=== PATIENT | female | born 1975 | race American Indian/Alaskan Native ===

== ENCOUNTER 2016-11-05 20:45 | Emergency (ER) | payer MEDICAID ==
[2016-11-05 21:00] VITALS: BP 148/99
[2016-11-05 21:52] LABS: Eosinophils % (Auto) 5.8 % (0.0-4.3); Hematocrit 35.7 % (30.3-42.9); Mean Corpuscular HGB Conc 34 % (30-34); Mean Corpuscular Hemoglobin 29 pg (28-32); Mean Corpuscular Volume 85 fl (79-97); Platelet Count 254 K/mm3 (140-440); Red Blood Count 4.19 M/mm3 (3.65-5.03); Red Cell Distribution Width 14.1 % (13.2-15.2); White Blood Count 7.3 K/mm3 (4.5-11.0)
[2016-11-05 22:58] LABS: Anion Gap 19 mmol/L; BUN/Creatinine Ratio 13.33; Blood Urea Nitrogen 12 mg/dL (7-17); Carbon Dioxide 21 mmol/L (22-30); Glucose 105 mg/dL (65-100); Potassium 4.2 mmol/L (3.6-5.0); Sodium 139 mmol/L (137-145)
== END 2016-11-05 22:22 | disposition left against medical advice (07) ==
LOC: ED 20:45
DX: R07.89 Other chest pain (principal); I10 Essential (primary) hypertension; G43.909 Migraine, unspecified, not intractable, without status migrainosus; Z53.21 Procedure and treatment not carried out due to patient leaving prior to being seen by health care provider
CPT/HCPCS: 36415; 80048; 84484; 85025; 93005; 93010

== ENCOUNTER 2018-09-05 05:23 | Inpatient (IN) | payer BC, MEDICAID ==
[2018-09-05] MEDS ORDERED: ASPIRIN PO ONE ×2 (05:29→06:48)
--- NOTE | 2018-09-05 05:54 | XRay Report ---
PROCEDURE: XR CHEST 1V AP TECHNIQUE: Chest radiograph single view. HISTORY: Chest Pain COMPARISONS: None . FINDINGS: No mediastinal shift. Cardiac silhouette is not enlarged. No pneumothorax, effusion, or focal pulmona ry opacity identified. No acute skeletal findings. IMPRESSION: No acute pulmonary finding identified. This document is electronically signed by Chuck Moffett MD., Sep 05 2018 05:52:40 AM ET
[2018-09-05 06:06] LABS: Hematocrit 36.6 % (30.3-42.9); Hemoglobin 12.3 gm/dl (10.1-14.3); Mean Corpuscular HGB Conc 34 % (30-34); Mean Corpuscular Volume 87 fl (79-97); Platelet Count 370 K/mm3 (140-440); Red Blood Count 4.21 M/mm3 (3.65-5.03)
--- NOTE | 2018-09-05 06:21 | Emergency Department Report ---
ED Chest Pain HPI - General Chief Complaint: Chest Pain Stated Complaint: CP/SOB Time Seen by Provider: 09/05/18 06:19 Source: patient Mode of arrival: Ambulatory Limitations: No Limitations - History of Present Illness Initial Comments: This is a 43 year old female with a history of hypertension. She has had a negative workup for chest pain as below indicated in 2017: Hospitalization Reason for admission: Chest Pain Condition: Good Pertinent studies: Stress test--Normal Echo--EF: 55-60% Hospital course: 38yo AAF with h/o HTN adm for CP Pls, see H&P for details She had Echo/Stress test done which were normal Currently, she denies CP PAULINE d/charlie 2/2 cough Disposition: DISCHARGED TO HOME OR SELFCARE - Discharge Diagnoses (1) Acute chest pain Status: Acute (2) Cough secondary to angiotensin converting enzyme inhibitor (PAULINE-I) Status: Acute (3) HTN (hypertension), benign Status: Acute Today she was awoken by chest pain at 2 in the morning. She admits noncompliance with her blood pressure medicine. She denies pleuritic pain. She states that she has nausea and tingling in her left arm. She denies cough or significant dyspnea. She is noncompliant with her blood pressure medicine. MD Complaint: chest pain -: Gradual Onset: awoke with symptoms Pain Location: left chest Pain Radiation: other (paresthesias left arm) Severity: moderate Quality: tightness Consistency: constant Improves With: nothing Worsens With: nothing re: nausea. denies: vomting, diaphoresis, dyspnea, sense of impending doom Other Symptoms: denies: cough, fever, syncope Treatments Prior to Arrival: none - Related Data On Oral Contraceptives: No Home Medications Medication Instructions Recorded Confirmed Last Taken cloNIDine [Catapres] 0.2 mg PO BID 04/12/16 04/12/16 04/11/16 0.2 mg Previous Rx's Medication Instructions Recorded Last Taken Type Azithromycin [Zithromax Z-TRENT] 1 dose PO DAILY 5 Days tab 04/12/16 Unknown Rx Benzonatate [Tessalon Perles] 100 mg PO Q8HR PRN #30 capsule 04/12/16 Unknown Rx Ibuprofen [Motrin] 800 mg PO Q8HR PRN #30 tablet 04/12/16 Unknown Rx traMADol [Ultram 50 MG tab] 50 mg PO Q6HR PRN #20 tablet 04/12/16 Unknown Rx Allergies Allergy/AdvReac Type Severity Reaction Status Date / Time No Known Allergies Allergy Verified 11/07/14 15:29 Heart Score - HEART Score History: Moderately suspicious EKG: Normal Age: < 45 Risk factors: 1-2 risk factors Troponin: < normal limit HEART Score: 2 - Critical Actions Critical Actions: 0-3 pts:0.9-1.7%risk of adverse cardiac event.Candidate for discharge ED Review of Systems ROS: Stated complaint: CP/SOB Other details as noted in HPI Constitutional: denies: chills, fever Eyes: denies: eye pain, eye discharge, vision change ENT: denies: ear pain, throat pain Respiratory: denies: cough, shortness of breath, wheezing Cardiovascular: chest pain. denies: palpitations Endocrine: no symptoms reported Gastrointestinal: nausea. denies: abdominal pain, vomiting, diarrhea Genitourinary: denies: urgency, dysuria, discharge Musculoskeletal: denies: back pain, joint swelling, arthralgia Skin: denies: rash, lesions Neurological: denies: headache, weakness, paresthesias Psychiatric: denies: anxiety, depression Hematological/Lymphatic: denies: easy bleeding, easy bruising ED Past Medical Hx - Past Medical History Previous Medical History?: Yes Hx Hypertension: Yes Hx Headaches / Migraines: Yes - Surgical History Past Surgical History?: Yes Additional Surgical History: x2 - Social History Smoking Status: Never Smoker Substance Use Type: None - Medications Home Medications: Home Medications Medication Instructions Recorded Confirmed Last Taken Type Azithromycin [Zithromax Z-TRENT] 1 dose PO DAILY 5 Days tab 04/12/16 Unknown Rx Benzonatate [Tessalon Perles] 100 mg PO Q8HR PRN #30 capsule 04/12/16 Unknown Rx Ibuprofen [Motrin] 800 mg PO Q8HR PRN #30 tablet 04/12/16 Unknown Rx cloNIDine [Catapres] 0.2 mg PO BID 04/12/16 04/12/16 04/11/16 History 0.2 mg traMADol [Ultram 50 MG tab] 50 mg PO Q6HR PRN #20 tablet 04/12/16 Unknown Rx ED Physical Exam - General Limitations: No Limitations General appearance: alert, in no apparent distress - Head Head exam: Present: atraumatic, normocephalic - Eye Eye exam: Present: normal appearance. Absent: scleral icterus - ENT ENT exam: Present: mucous membranes moist - Neck Neck exam: Present: normal inspection - Respiratory Respiratory exam: Present: normal lung sounds bilaterally. Absent: respiratory distress - Cardiovascular Cardiovascular Exam: Present: regular rate, normal rhythm. Absent: systolic murmur, diastolic murmur, rubs, gallop - GI/Abdominal GI/Abdominal exam: Present: soft, normal bowel sounds. Absent: distended, tenderness, guarding, rebound, rigid - Extremities Exam Extremities exam: Present: normal inspection - Back Exam Back exam: Present: normal inspection - Neurological Exam Neurological exam: Present: alert, oriented X3, CN II-XII intact. Absent: motor sensory deficit - Psychiatric Psychiatric exam: Present: normal affect, normal mood - Skin Skin exam: Present: warm, dry, intact, normal color. Absent: rash ED Course Vital Signs 09/05/18 09/05/18 05:26 06:39 Temperature 97.9 F Pulse Rate 67 Respiratory 18 20 Rate Blood Pressure 179/119 O2 Sat by Pulse 99 Oximetry - Reevaluation(s) Reevaluation #1: Somewhat anxious 43-year-old female with medical noncompliance. She will be given aspirin, Nitropaste analgesia and antiemetics. Her EKG and laboratory testing is normal. She is stable for admission by the hospitalist service for further care and evaluation of her chest pain and uncontrolled hypertension. 09/05/18 06:56 ANGEL score - Angel Score Age > 65: (0) No Aspirin use within the Past 7 Days: (0) No 3 or more CAD Risk Factors: (0) No 2 or more Angina events in past 24 hrs: (0) No Known CAD with more than 50% Stenosis: (0) No Elevated Cardiac Markers: (0) No ST Deviation Greater than 0.5mm: (0) No ANGEL Score: 0 ED Medical Decision Making - Lab Data Result diagrams: 09/05/18 05:47 09/05/18 05:51 Laboratory Results - last 24 hr 09/05/18 05:47 WBC 5.5 RBC 4.21 Hgb 12.3 Hct 36.6 MCV 87 MCH 29 MCHC 34 RDW 14.0 Plt Count 370 Seg Neutrophils % Welder First Class - EKG Data -: EKG Interpreted by Me EKG shows normal: sinus rhythm, axis, intervals, QRS complexes, ST-T waves Rate: normal - EKG Data Interpretation: no acute changes - Radiology Data Radiology results: report reviewed (no acute process) Critical care attestation.: If time is entered above; I have spent that time in minutes in the direct care of this critically ill patient, excluding procedure time. ED Disposition Clinical Impression: Uncontrolled hypertension Chest pain Qualifiers: Chest pain type: unspecified Qualified Code(s): R07.9 - Chest pain, unspecified Disposition: 09 OP ADMIT IP TO THIS HOSP Is pt being admited?: Yes Does the pt Need Aspirin: Yes Condition: Stable Instructions: Chest Pain (ED), Hypertension (ED) Time of Disposition: 06:58
[2018-09-05 06:28] LABS: BUN/Creatinine Ratio 13; Blood Urea Nitrogen 10 mg/dL (7-17); Calcium 8.5 mg/dL (8.4-10.2); Hemolysis Index 9
[2018-09-05] MEDS ORDERED: MORPHINE IV ONE (06:48)
[2018-09-05] MEDS ORDERED: NITRO-BID 2% TP ONE (06:48)
[2018-09-05] MEDS ORDERED: ZOFRAN IV ONE ×2 (06:48→09:04)
[2018-09-05 08:40] LABS: Basophils % (Manual) 0 % (0.0-1.8); Hypochromasia Few; Large Platelets Few; Ovalocytes Few; Platelet Estimate Consistent w Auto; Total Cells Counted 100
[2018-09-05] MEDS ORDERED: CATAPRES ONE ×2 (09:04→09:09)
[2018-09-05] MEDS ORDERED: ZOFRAN ONE (09:09)
[2018-09-05] MEDS: CATAPRES PO SCH ×2 (09:10→21:53)
--- NOTE | 2018-09-05 11:22 | History and Physical Report ---
History of Present Illness Date of examination: 09/05/18 Date of admission: 09/05/18 07:29 Chief complaint: Chest pain Shortness of breath History of present illness: Patient is 43 yo with hypertension , obesity. She presents with chest pain. Chest pain is left-sided, 8 out of 10, radiating to the left arm. There were no aggravating or alleviating factors. Chest pain not related to food. She got concerned therefore came to Emergency department for further evaluation. She was seen and evaluated in the ED. Initial troponin was normal. Will admit to rule out acute coronary syndrome since she has risk factors of hypertension and Obesity. Past History Past Medical History: hypertension, other (Obesity) Past Surgical History: Social history: , lives with family, full code, other (Alcohol occasionally). denies: smoking Family history: cancer, hypertension Medications and Allergies Allergies Allergy/AdvReac Type Severity Reaction Status Date / Time No Known Allergies Allergy Verified 11/07/14 15:29 Home Medications Medication Instructions Recorded Confirmed Last Taken Type Benzonatate [Tessalon Perles] 100 mg PO Q8HR PRN #30 capsule 04/12/16 09/05/18 Unknown Rx traMADol [Ultram 50 MG tab] 50 mg PO Q6HR PRN #20 tablet 04/12/16 09/05/18 Unknown Rx Butalb/Acetamin/Caff 50-325-40 1 tab PO Q4H PRN #20 tablet 09/07/18 Unknown Rx [Fioricet 50-325-40] Hydralazine HCl 50 mg PO BID #60 tablet 09/07/18 Unknown Rx dilTIAZem CD [Cardizem CD] 180 mg PO QDAY #30 capsule 09/07/18 Unknown Rx Active Meds: Active Medications Clonidine HCl (Catapres) 0.2 mg PO Q12HR VALDEZ Last Admin: 09/05/18 09:10 Dose: 0.2 mg Documented by: Review of Systems All systems: negative (No fever, no vomiting, no abd pain. Headache. All other systems reviewed and are negative) Exam - Physical Exam Narrative exam: Gen: Not in acute distress, lying in bed, obese, HEENT: Normocephalic, atraumatic Neck: supple, no JVD Heart: S1 and S2 reg, no murmurs, rubs or gallop Lungs: Clear, no crackles, no wheeze Abd: soft, non tender, non distended, normal BS Ext: No edema, no clubbing, no cyanosis, Neuro: Awake,alert, oriented x 3, moves all ext, non focal Psych:Normal mood - Constitutional Vitals: Temp Pulse Resp BP Pulse Ox 97.9 F 56 L 18 148/92 98 09/05/18 05:26 09/05/18 09:20 09/05/18 09:20 09/05/18 09:20 09/05/18 09:20 Results - Labs CBC & Chem 7: 09/06/18 05:29 09/06/18 05:29 Labs: Abnormal lab results 09/05/18 09/05/18 Range/Units 05:47 05:51 Seg Neuts % (Manual) 34.0 L (40.0-70.0) % Lymphocytes % (Manual) 43.0 H (13.4-35.0) % Monocytes % (Manual) 17.0 H (0.0-7.3) % Eosinophils % (Manual) 6.0 H (0.0-4.3) % Monocytes # (Manual) 0.9 H (0.0-0.8) K/mm3 Potassium 3.4 L (3.6-5.0) mmol/L Glucose 105 H (65-100) mg/dL Assessment and Plan Chest pain Admit Obtain Serial Troponins Aspirin 325mg po daily stress test in am Get d-dimer Shortness of breath Obtain d-dimer Hypertension Monitor BP Obesity. I counseled her on diet and exercise Full code status
[2018-09-05] MEDS ORDERED: PROVENTIL IH PRN (11:48)
[2018-09-05] MEDS ORDERED: ZOFRAN IV PRN (11:48)
[2018-09-05] MEDS ORDERED: SODIUM CHLORIDE FLUSH SYRINGE 10 ML IV PRN (11:48)
[2018-09-05] MEDS: HEPARIN SUB-Q SCH ×2 (13:48→21:53)
[2018-09-05] MEDS: TYLENOL PO PRN (15:55)
[2018-09-05] MEDS: FIORICET PO PRN (18:44)
[2018-09-05] MEDS: SODIUM CHLORIDE FLUSH SYRINGE 10 ML IV SCH (21:55)
[2018-09-06 05:51] LABS: Basophils % (Auto) 0.9 % (0.0-1.8); Eosinophils # (Auto) 0.3 K/mm3 (0.0-0.4); Eosinophils % (Auto) 5.2 % (0.0-4.3); Hematocrit 35.8 % (30.3-42.9); Hemoglobin 12.2 gm/dl (10.1-14.3); Lymphocytes # (Auto) 2.3 K/mm3 (1.2-5.4); Lymphocytes % (Auto) 45.5 % (13.4-35.0); Mean Corpuscular HGB Conc 34 % (30-34); Mean Corpuscular Volume 86 fl (79-97); Monocytes # (Auto) 0.6 K/mm3 (0.0-0.8); Monocytes % (Auto) 11.1 % (0.0-7.3); Platelet Count 351 K/mm3 (140-440); Red Blood Count 4.17 M/mm3 (3.65-5.03)
[2018-09-06 06:11] LABS: BUN/Creatinine Ratio 11; Blood Urea Nitrogen 9 mg/dL (7-17); Calcium 8.9 mg/dL (8.4-10.2); Hemolysis Index 37
[2018-09-06] MEDS: HEPARIN SUB-Q SCH ×3 (06:48→21:01)
[2018-09-06] MEDS ORDERED: LEXISCAN IV ONE (08:23)
[2018-09-06] MEDS: CATAPRES PO SCH (09:46)
[2018-09-06] MEDS: TYLENOL PO PRN (09:48)
--- NOTE | 2018-09-06 13:11 | Consultation ---
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 During the treadmill stress test patient went to left bundle branch block with some mild chest discomfort that resolved in recovery when heart rate below 70. Patient's chest pain is not radiation was with exertion denies any palpitations or syncope or lightheadedness but difficult control blood pressure as blood pressure fluctuates Past History Past Medical History: hypertension, other (Obesity) Past Surgical History: Social history: , lives with family, full code, other (Alcohol occasional ly). denies: smoking Family history: cancer, hypertension Medications and Allergies Allergies Allergy/AdvReac Type Severity Reaction Status Date / Time No Known Allergies Allergy Verified 11/07/14 15:29 Home Medications Medication Instructions Recorded Confirmed Last Taken Type Azithromycin [Zithromax Z-TRENT] 1 dose PO DAILY 5 Days tab 04/12/16 09/05/18 Unknown Rx Benzonatate [Tessalon Perles] 100 mg PO Q8HR PRN #30 capsule 04/12/16 09/05/18 Unknown Rx Ibuprofen [Motrin] 800 mg PO Q8HR PRN #30 tablet 04/12/16 09/05/18 Unknown Rx cloNIDine [Catapres] 0.2 mg PO BID 04/12/16 09/05/18 09/05/18 History 0.2MG traMADol [Ultram 50 MG tab] 50 mg PO Q6HR PRN #20 tablet 04/12/16 09/05/18 Unknown Rx Active Meds: Active Medications Acetaminophen (Tylenol) 650 mg PO Q4H PRN PRN Reason: Pain MILD(1-3)/Fever >100.5/PEÑA Last Admin: 09/06/18 09:48 Dose: 650 mg Documented by: Acetaminophen/Butalbital/Caffeine (Fioricet) 1 tab PO Q4H PRN PRN Reason: Headache Last Admin: 09/05/18 18:44 Dose: 1 tab Documented by: Albuterol (Proventil) 2.5 mg IH Q4HRT PRN PRN Reason: Shortness Of Breath Diltiazem HCl (Cardizem) 60 mg PO TID [facility] Heparin Sodium (Porcine) (Heparin) 5,000 unit SUB-Q Q8HR [facility] Last Admin: 09/06/18 06:48 Dose: 5,000 unit Documented by: Hydralazine HCl (Apresoline) 50 mg PO Q8HR [facility] Ondansetron HCl (Zofran) 4 mg IV Q8H PRN PRN Reason: Nausea And Vomiting Sodium Chloride (Sodium Chloride Flush Syringe 10 Ml) 10 ml IV BID [facility] Last Admin: 09/05/18 21:55 Dose: 10 ml Documented by: Sodium Chloride (Sodium Chloride Flush Syringe 10 Ml) 10 ml IV PRN PRN PRN Reason: LINE FLUSH Last Admin: 09/06/18 09:51 Dose: 10 ml Documented by: Review of Systems All systems: negative (as per HPI) Physical Examination Vital Signs Temp Pulse Resp BP Pulse Ox 97.9 F 67 18 179/119 99 09/05/18 05:26 09/05/18 05:26 09/05/18 05:26 09/05/18 05:26 09/05/18 05:26 General appearance: no acute distress, well-nourished HEENT: Positive: PERRL, Mucus Membranes Moist Neck: Positive: neck supple, trachea midline Cardiac: Positive: Reg Rate and Rhythm, S1/S2. Negative: Audible Murmur Lungs: Positive: clear to auscultation, Normal Breath Sounds Neuro: Positive: Grossly Intact Abdomen: Positive: Soft, Active Bowel Sounds. Negative: Tender, Distended Female genitourinary: deferred Skin: Positive: Clear Incision: Cardiac Cath Site Musculoskeletal: No Pain, Normal Range of Motion Extremities: Present: normal. Absent: edema Results 09/06/18 05:29 09/06/18 05:29 CBC 09/06/18 Range/Units 05:29 WBC 5.0 (4.5-11.0) K/mm3 RBC 4.17 (3.65-5.03) M/mm3 Hgb 12.2 (10.1-14.3) gm/dl Hct 35.8 (30.3-42.9) % Plt Count 351 (140-440) K/mm3 Lymph # 2.3 (1.2-5.4) K/mm3 [place] # 0.6 (0.0-0.8) K/mm3 Eos # 0.3 (0.0-0.4) K/mm3 Baso # 0.0 (0.0-0.1) K/mm3 Comprehensive Metabolic Panel 09/06/18 Range/Units 05:29 Sodium 140 (137-145) mmol/L Potassium 3.9 (3.6-5.0) mmol/L Chloride 103.3 (98-107) mmol/L Carbon Dioxide 26 (22-30) mmol/L BUN 9 (7-17) mg/dL Creatinine 0.8 (0.7-1.2) mg/dL Glucose 102 H (65-100) mg/dL Calcium 8.9 (8.4-10.2) mg/dL - Imaging and Cardiology Stress echo: other (normal myocardial perfusion and normal lv function, positive treadmill pt went into lbbb) Echo: pending EKG interpretations - Telemetry EKG Rhythm: Sinus Bradycardia (as bradycardia and nonspecific ST-T wave) Assessment and Plan In view of patient's elevated blood pressure. Clonidine and put patient on hydralazine with calcium channel trevor express heart rate has patient went to left bundle-branch block with activity normal myocardial perfusionsignificant ischemia echo is pending patient will ambulate on the medications and monitor change in EKG pattern - Patient Problems (1) Morbid obesity with BMI of 40.0-44.9, adult Current Visit: Yes Status: Chronic (2) Hypertension Current Visit: Yes Status: Chronic Qualifiers: Hypertension type: essential hypertension Qualified Code(s): I10 - Essential (primary) hypertension (3) Acute diastolic (congestive) heart failure Current Visit: Yes Status: Acute (4) Chest pain Current Visit: Yes Status: Acute Qualifiers: Chest pain type: unspecified Qualified Code(s): R07.9 - Chest pain, unspecified
[2018-09-06] MEDS: SODIUM CHLORIDE FLUSH SYRINGE 10 ML IV SCH ×2 (13:34→21:01)
--- NOTE | 2018-09-06 13:54 | Treadmill Report ---
TREADMILL PORTION OF NUCLEAR STRESS TEST The patient exercised on Vini protocol for 6 minutes. Resting heart rate is 51, which is normal sinus rhythm, nonspecific ST-Ts. Max heart rate was 154, which is greater than 85% max predicted heart rate. Resting blood pressure 142/89. Peak blood pressure 198/116. The patient within 3 minutes of treadmill went into a left bundle branch block, some mild chest discomfort, but was more pleuritic and the patient reached maximum predicted heart rate and in recovery, the patient converted back into a narrow complex QRS back to her baseline when heart rate cut down into the 60s. SUMMARY: 1. Positive treadmill EKG. The patient went into a left bundle branch block with activity, exaggerated BP response to exercise. 2. Poor to fair exercise capacity. IMAGING: Pending. JOB# [id number] JB/NABEEL
[2018-09-06] MEDS: APRESOLINE PO SCH ×2 (15:31→22:32)
[2018-09-06] MEDS: CARDIZEM PO SCH ×2 (15:32→22:32)
--- NOTE | 2018-09-06 16:52 | Progress Note ---
Assessment and Plan Assessment and plan: Chest pain Aspirin po daily stress test was abnormal in that she had LBBB during stress test. Discussed with cardiology D-dimer neg Shortness of breath Resolved Hypertensive urgency BP meds adjusted by cardiology Full code status History Interval history: patient admitted for chest pain Had LBBB during stress test, as stated by cardiology Hospitalist Physical - Physical exam Narrative exam: Gen: Not in acute distress, lying in bed, obese, HEENT: Normocephalic, atraumatic Neck: supple, no JVD Heart: S1 and S2 reg, no murmurs, rubs or gallop Lungs: Clear, no crackles, no wheeze Abd: soft, non tender, non distended, normal BS Ext: No edema, no clubbing, no cyanosis, Neuro: Awake,alert, oriented x 3, moves all ext, non focal Psych:Normal mood - Constitutional Vitals: Temp Pulse Resp BP Pulse Ox 98.0 F 51 L 18 144/91 100 09/06/18 06:04 09/06/18 06:04 09/06/18 06:04 09/06/18 15:32 09/06/18 06:04 General appearance: Present: no acute distress, well-nourished Results - Labs CBC & Chem 7: 09/06/18 05:29 09/06/18 05:29 Labs: Laboratory Last Values WBC 5.0 K/mm3 (4.5-11.0) 09/06/18 05:29 RBC 4.17 M/mm3 (3.65-5.03) 09/06/18 05:29 Hgb 12.2 gm/dl (10.1-14.3) 09/06/18 05:29 Hct 35.8 % (30.3-42.9) 09/06/18 05:29 MCV 86 fl (79-97) 09/06/18 05:29 MCH 29 pg (28-32) 09/06/18 05:29 MCHC 34 % (30-34) 09/06/18 05:29 RDW 14.0 % (13.2-15.2) 09/06/18 05:29 Plt Count 351 K/mm3 (140-440) 09/06/18 05:29 Lymph % (Auto) 45.5 % (13.4-35.0) H 09/06/18 05:29 Hernando % (Auto) 11.1 % (0.0-7.3) H 09/06/18 05:29 Eos % (Auto) 5.2 % (0.0-4.3) H 09/06/18 05:29 Baso % (Auto) 0.9 % (0.0-1.8) 09/06/18 05:29 Lymph # 2.3 K/mm3 (1.2-5.4) 09/06/18 05:29 Hernando # 0.6 K/mm3 (0.0-0.8) 09/06/18 05:29 Eos # 0.3 K/mm3 (0.0-0.4) 09/06/18 05:29 Baso # 0.0 K/mm3 (0.0-0.1) 09/06/18 05:29 Add Manual Diff Complete 09/05/18 05:47 Total Counted 100 09/05/18 05:47 Seg Neutrophils % 37.3 % (40.0-70.0) L 09/06/18 05:29 Seg Neuts % (Manual) 34.0 % (40.0-70.0) L 09/05/18 05:47 0 % 09/05/18 05:47 43.0 % (13.4-35.0) H 09/05/18 05:47 Reactive Lymphs % (Man) 0 % 09/05/18 05:47 17.0 % (0.0-7.3) H 09/05/18 05:47 6.0 % (0.0-4.3) H 09/05/18 05:47 0 % (0.0-1.8) 09/05/18 05:47 0 % 09/05/18 05:47 0 % 09/05/18 05:47 0 % 09/05/18 05:47 0 % 09/05/18 05:47 Nucleated RBC % Not Reportable 09/05/18 05:47 Seg Neutrophils # 1.9 K/mm3 (1.8-7.7) 09/06/18 05:29 Seg Neutrophils # Man 1.9 K/mm3 (1.8-7.7) 09/05/18 05:47 Band Neutrophils # 0.0 K/mm3 09/05/18 05:47 2.4 K/mm3 (1.2-5.4) 09/05/18 05:47 Abs React Lymphs (Man) 0.0 K/mm3 09/05/18 05:47 0.9 K/mm3 (0.0-0.8) H 09/05/18 05:47 0.3 K/mm3 (0.0-0.4) 09/05/18 05:47 0.0 K/mm3 (0.0-0.1) 09/05/18 05:47 0.0 K/mm3 09/05/18 05:47 0.0 K/mm3 09/05/18 05:47 0.0 K/mm3 09/05/18 05:47 Blast Cells # 0.0 K/mm3 09/05/18 05:47 WBC Morphology Not Reportable 09/05/18 05:47 Hypersegmented Neuts Not Reportable 09/05/18 05:47 Hyposegmented Neuts Not Reportable 09/05/18 05:47 Hypogranular Neuts Not Reportable 09/05/18 05:47 Not Reportable 09/05/18 05:47 Not Reportable 09/05/18 05:47 Not Reportable 09/05/18 05:47 Not Reportable 09/05/18 05:47 Not Reportable 09/05/18 05:47 Not Reportable 09/05/18 05:47 Consistent w auto 09/05/18 05:47 Not Reportable 09/05/18 05:47 Plt Clumps, EDTA Not Reportable 09/05/18 05:47 Few 09/05/18 05:47 Not Reportable 09/05/18 05:47 Not Reportable 09/05/18 05:47 Plt Morphology Comment Not Reportable 09/05/18 05:47 RBC Morphology Not Reportable 09/05/18 05:47 Dimorphic RBCs Not Reportable 09/05/18 05:47 Not Reportable 09/05/18 05:47 Few 09/05/18 05:47 Not Reportable 09/05/18 05:47 Not Reportable 09/05/18 05:47 1+ 09/05/18 05:47 Not Reportable 09/05/18 05:47 Not Reportable 09/05/18 05:47 Not Reportable 09/05/18 05:47 Not Reportable 09/05/18 05:47 Not Reportable 09/05/18 05:47 Not Reportable 09/05/18 05:47 Few 09/05/18 05:47 Not Reportable 09/05/18 05:47 Not Reportable 09/05/18 05:47 Not Reportable 09/05/18 05:47 Not Reportable 09/05/18 05:47 Not Reportable 09/05/18 05:47 Not Reportable 09/05/18 05:47 Not Reportable 09/05/18 05:47 Acanthocytes (Spur) Not Reportable 09/05/18 05:47 Rouleaux Not Reportable 09/05/18 05:47 Not Reportable 09/05/18 05:47 Not Reportable 09/05/18 05:47 Not Reportable 09/05/18 05:47 Not Reportable 09/05/18 05:47 Hem Pathologist Commnt No 09/05/18 05:47 168.71 ng/mlDDU (0-234) 09/05/18 11:38 Sodium 140 mmol/L (137-145) 09/06/18 05:29 Potassium 3.9 mmol/L (3.6-5.0) 09/06/18 05:29 Chloride 103.3 mmol/L (98-107) 09/06/18 05:29 Carbon Dioxide 26 mmol/L (22-30) 09/06/18 05:29 15 mmol/L 09/06/18 05:29 BUN 9 mg/dL (7-17) 09/06/18 05:29 0.8 mg/dL (0.7-1.2) 09/06/18 05:29 Estimated GFR > 60 ml/min 09/06/18 05:29 11 % 09/06/18 05:29 Glucose 102 mg/dL (65-100) H 09/06/18 05:29 Calcium 8.9 mg/dL (8.4-10.2) 09/06/18 05:29 < 0.010 ng/mL (0.00-0.029) 09/05/18 11:38 Active Medications - Current Medications Current Medications: Generic Name Dose Route Start Last Admin Trade Name Freq PRN Reason Stop Dose Admin Acetaminophen 650 mg 09/05/18 11:48 09/06/18 09:48 Tylenol PO 650 mg Q4H PRN Administration Pain MILD(1-3)/Fever >100.5/PEÑA Acetaminophen/Butalbital/Caffeine 1 tab 09/05/18 18:36 09/05/18 18:44 Fioricet PO 1 tab Q4H PRN Administration Headache Albuterol 2.5 mg 09/05/18 11:48 Proventil IH Q4HRT PRN Shortness Of Breath Diltiazem HCl 60 mg 09/06/18 14:00 09/06/18 15:32 Cardizem PO 60 mg TID VALDEZ Administration Heparin Sodium (Porcine) 5,000 unit 09/05/18 14:00 09/06/18 15:36 Heparin SUB-Q 5,000 unit Q8HR VALDEZ Administration Hydralazine HCl 50 mg 09/06/18 14:00 09/06/18 15:31 Apresoline PO 50 mg Q8HR VALDEZ Administration Ondansetron HCl 4 mg 09/05/18 11:48 Zofran IV Q8H PRN Nausea And Vomiting Sodium Chloride 10 ml 09/05/18 22:00 09/06/18 13:34 Sodium Chloride Flush Syringe 10 Ml IV Not Given BID VALDEZ Sodium Chloride 10 ml 09/05/18 11:48 09/06/18 09:51 Sodium Chloride Flush Syringe 10 Ml IV 10 ml PRN PRN Administration LINE FLUSH Nutrition/Malnutrition Assess - Dietary Evaluation Nutrition/Malnutrition Findings: Nutrition Notes Start: 09/05/18 17:12 Freq: Status: Active Protocol: Document 09/05/18 17:12 [facility] (Rec: 09/05/18 17:19 [facility] [id number]) Nutrition Notes Need for Assessment generated from: MD Order,[employer],[facility] Initial or Follow up Assessment Current Diagnosis Hypertension Other Pertinent Diagnosis Chest pain Current Diet Cardiac Labs/Tests K 3.4 Pertinent Medications Reviewed Height 5 ft 4 in Weight 94.4 kg Usual Body Weight 96.36 kg [place] Body Weight (kg) 54.54 BMI 35.7 Intake Prior to Admission Fair Weight change and time frame Pt reports unintentional 2% wt loss over the past three wks Weight Status Obese Subjective/Other Information RD consulted for poor oral intake; pt also screened for malnutrition risk (wt loss, poor appetite). Pt reports that she has only been eating small bites of food over the past two wks and has been more dehydrated than anything. Per records, pr noncompliant with BP medications (BP upon admission: 179/119). Pt says she takes her BP medications as prescribed though. Burn Absent Trauma Absent #1 Nutrition Diagnosis Inadequate oral intake Etiology decreased appetite As Evidenced by Signs and Symptoms pt eating very little currently Is patient on ventilator? No Is Patient Ambulatory and/or Out of Bed No REE-([place]-confined to bed) 1897.896 Kcal/Kg value to use for calculation 15 Approximate Energy Requirements Using 1416 kcal/Kg Calculation Used for Recommendations Kcal/kg Additional Notes Pro needs 0.8-1g/kg adjBW: 60- 74g/day Fluid needs 1ml/kcal Nutrition Intervention Change Diet Order: Continue current diet order Goal #1 PO intakes to meet at least 75 % energy and pro needs Anticipated Discharge Needs: Low sodium diet Follow-Up By: 09/09/18 Additional Comments F/U: intakes
--- NOTE | 2018-09-06 19:42 | Treadmill Report ---
READING PHYSICIAN: Stefan Young M.D. IMAGING PROTOCOL: The patient received 10 mCi of Technetium 99m Tetrofosmin for resting image and 28 mCi of Technetium 99m Tetrofosmin for stress imaging. The imaging for the whole procedure was completed 30-90 minutes following the initial injection of Technetium 99m Tetrofosmin. The SPECT imaging in the 180 degree arc was performed in the right anterior oblique projection. Computerized reconstruction of the images was performed for analysis. IMAGING RESULTS: Normal cavity size from stress to rest. Normal distribution of radionuclide in anterior, inferior, septal, and apical regions. Gated SPECT, EF 62% with no wall motion abnormality. The patient had a positive treadmill EKG. SUMMARY: 1. Positive treadmill EKG. The patient went to left bundle branch block with activity that resolved when heart rate went less than 70 and during recovery. 2. Mild exaggerated BP response to exercise. 3. Normal rest and stress myocardial perfusion scan. No significant stress induced ischemia. No wall motion abnormality. Gated SPECT, EF 62%. JOB# [id number] JB/NABEEL
[2018-09-06] MEDS: FIORICET PO PRN (20:57)
[2018-09-07] MEDS: APRESOLINE PO SCH (05:28)
[2018-09-07] MEDS: HEPARIN SUB-Q SCH (05:29)
[2018-09-07] MEDS: CARDIZEM PO SCH (08:20)
[2018-09-07] MEDS: SODIUM CHLORIDE FLUSH SYRINGE 10 ML IV SCH (09:59)
[2018-09-07 11:35] VITALS: BP 142/81
--- NOTE | 2018-09-07 11:42 | Progress Note ---
Assessment and Plan Patient's blood pressure and heart rate control with Cardizem and hydralazine may discharge on Cardizem CD 180 mg once a day and hydralazine 50 mg twice a day patient encouraged to lose weight dietary discretion patient ambulate without any chest pain or palpitations and no arrhythmia or change in QRS complex on Cardizem. Discussed with patient detail about cardiac findings and follow-up in office in 2 weeks - Patient Problems (1) Morbid obesity with BMI of 40.0-44.9, adult Current Visit: Yes Status: Chronic (2) Hypertension Current Visit: Yes Status: Chronic Qualifiers: Hypertension type: essential hypertension Qualified Code(s): I10 - Essential (primary) hypertension (3) Acute diastolic (congestive) heart failure Current Visit: Yes Status: Acute (4) Chest pain Current Visit: Yes Status: Acute Qualifiers: Chest pain type: unspecified Qualified Code(s): R07.9 - Chest pain, unspecified Subjective Date of service: 09/07/18 Principal diagnosis: no sob or chest pain Interval history: no chest pain or sob Objective Vital Signs Temp Pulse Pulse Resp Resp BP Pulse Ox 09/07/18 10:56 98.4 F 64 18 142/81 99 09/07/18 08:20 127/82 09/07/18 08:18 127/82 09/07/18 05:24 98.4 F 57 L 20 128/75 99 09/06/18 22:19 98.6 F 56 L 20 134/76 99 09/06/18 22:00 18 09/06/18 21:57 18 09/06/18 21:00 57 L 09/06/18 20:57 16 09/06/18 17:13 98.4 F 67 18 113/71 91 09/06/18 15:32 144/91 09/06/18 15:31 144/91 09/06/18 15:29 144/91 09/06/18 12:37 151/102 09/06/18 12:35 198/116 09/06/18 12:26 142/89 - Physical Examination General: Appears Well HEENT: Positive: PERRL, Mucus Membranes Moist Neck: Positive: neck supple, trachea midline Cardiac: Positive: Reg Rate and Rhythm Lungs: Positive: clear to auscultation Neuro: Positive: Grossly Intact Abdomen: Positive: Soft, Active Bowel Sounds. Negative: Tender, Distended Skin: Positive: Clear Incision: Cardiac Cath Site Musculoskeletal: No Pain, Normal Range of Motion Extremities: Present: normal. Absent: edema - Imaging and Cardiology Stress echo: other (normal myocardial perfusion and normal lv function, positive treadmill pt went into lbbb) Echo: report reviewed (normal LV function mild to moderate LVH no significant regurgitations) - Telemetry EKG Rhythm: Sinus Rhythm (normal sinus rhythm no medical tachycardia and no left bundle with activity)
--- NOTE | 2018-09-07 12:03 | Discharge Summary ---
Providers - Providers Date of Admission: 09/05/18 07:29 Date of discharge: 09/07/18 Attending physician: KISHAN THOMSON 09/05/18 Consult to Case Management [CONS] Routine Services Needed at Discharge: Other Notified:: mango Comment:: dc planning 09/05/18 10:54 Consult to Dietitian/Nutrition [CONS] Routine Physician Instructions: Reason For Exam: Reason for Consult: Poor oral intake 09/06/18 13:31 Consult to Physician [CONS] Routine Comment: Consulting Provider: ARTURO YOUNG Physician Instructions: Reason For Exam: Chest pain Primary care physician: LATIA MAHAJAN Hospitalization Condition: Fair Hospital course: Patient is 43 yo with hypertension , obesity. She presented with chest pain, left-sided, 8 out of 10, radiating to the left arm. She was seen and evaluated in the ED and admitted to acute coronary syndrome and blood pressure control.. She was started on aspirin , clonidine Hydralazine and admitted. Stress test was ordered and she developed left bundle-branch block during test. She was evaluated by cardiology, Dr. Young and diagnosed with acute diastolic heart failure, LBBB and she was put on Cardizem CD. She was subsequently discharged home to follow as an outpatient with cardiology. Total time spent on discharge, 32 mins Disposition: DC-01 TO HOME OR SELFCARE - Discharge Diagnoses (1) GERD (gastroesophageal reflux disease) Status: Acute (2) Hypertensive urgency Status: Acute (3) Acute diastolic (congestive) heart failure Status: Acute (4) Chest pain Status: Acute Qualifiers: Chest pain type: unspecified Qualified Code(s): R07.9 - Chest pain, unspecified (5) Hypertension Status: Chronic Qualifiers: Hypertension type: essential hypertension Qualified Code(s): I10 - Essential (primary) hypertension (6) Left bundle branch block (LBBB) Status: Acute Core Measure Documentation - Palliative Care Palliative Care/ Comfort Measures: Not Applicable - Core Measures Any of the following diagnoses?: none Exam - Physical Exam Narrative exam: Gen: Not in acute distress, lying in bed, obese, HEENT: Normocephalic, atraumatic Neck: supple, no JVD Heart: S1 and S2 reg, no murmurs, rubs or gallop Lungs: Clear, no crackles, no wheeze Abd: soft, non tender, non distended, normal BS Ext: No edema, no clubbing, no cyanosis, Neuro: Awake,alert, oriented x 3, moves all ext, non focal Psych:Normal mood - Constitutional Vitals: Temp Pulse Resp BP Pulse Ox 98.4 F 64 18 142/81 99 09/07/18 10:56 09/07/18 10:56 09/07/18 10:56 09/07/18 10:56 09/07/18 10:56 Plan Activity: advance as tolerated Diet: low fat, low cholesterol, low salt Additional Instructions: 1.Follow up with PCP or [facility] in 1 week. 2.Follow up with Dr. Young in 1 week. Follow up with: LYNDA SIMONSEANOR MD BRITT [Referring] - 3-5 Days Prescriptions: dilTIAZem CD [Cardizem CD] 180 mg PO QDAY #30 capsule Butalb/Acetamin/Caff 50-325-40 [Fioricet 50-325-40] 1 tab PO Q4H PRN #20 tablet PRN Reason: Headache Hydralazine HCl 50 mg PO BID #60 tablet
[2018-09-07] MEDS ORDERED: APRESOLINE PO SCH (22:00)
[2018-09-08] MEDS ORDERED: CARDIZEM CD PO SCH (10:00)
== END 2018-09-07 13:15 | disposition home or self-care (01) | DRG 291 ==
LOC: ED 05:23 → 3A 07:29
PROVIDERS: ADMIT Internal Medicine; ATTEND Internal Medicine
DX: I11.0 Hypertensive heart disease with heart failure (principal); I50.31 Acute diastolic (congestive) heart failure; Z68.41 Body mass index [BMI] 40.0-44.9, adult; G43.909 Migraine, unspecified, not intractable, without status migrainosus; I16.0 Hypertensive urgency; E66.01 Morbid (severe) obesity due to excess calories; Z80.9 Family history of malignant neoplasm, unspecified; Z82.49 Family history of ischemic heart disease and other diseases of the circulatory system
CPT/HCPCS: 36415; 71045; 78452; 80048; 84484; 85007; 85025; 85379; 93005; 93010; 93017; 93306; 96374; 96375; G0378; A9502; J1644; J2270; J2405; J2785

== ENCOUNTER 2019-07-01 00:45 | Emergency (ER) | payer BC, OTHER ==
[2019-07-01] MEDS ORDERED: PROCHLORPERAZINE EDISYLATE 10 MG/2 ML VIAL IV ONE (04:21)
[2019-07-01] MEDS ORDERED: dexAMETHasone 20 MG/5 ML VIAL IV ONE (04:21)
[2019-07-01] MEDS ORDERED: SODIUM CHLORIDE 0.9% 1000 ML 1,000 ML IV ONE (04:22)
--- NOTE | 2019-07-01 04:22 | Emergency Department Report ---
ED Headache HPI - General Chief Complaint: Headache Stated Complaint: MIGRAINE/CHEST COLD Time Seen by Provider: 07/01/19 04:02 Source: patient, RN notes reviewed Exam Limitations: no limitations - History of Present Illness Initial Comments: This is a 44-year-old -[place] female who presents to the emergency room with a headache and cough for 2 days. Past medical history of hypertension and migraines. Reports sensitivity to light. States currently not on medication. She usually takes NSAIDs for pain management of migraines. She is looking for a primary care doctor to manage hypertension. Denies fever, chills, visual changes, dizziness, chest pain, or weakness. Timing/Duration: 24 hours Quality: constant, throbbing Head Injury Location: global Recent Head Trauma: no recent headache/trauma, chronic headaches Modifying Factors: improves with: exposure to light Associated Symptoms: denies symptoms Allergies/Adverse Reactions: Allergies No Known Allergies Allergy (Verified 11/07/14 15:29) Home Medications: Ambulatory Orders Benzonatate [Tessalon Perles] 100 mg PO Q8HR PRN #30 capsule 04/12/16 traMADoL [Ultram 50 MG tab] 50 mg PO Q6HR PRN #20 tablet 04/12/16 Hydralazine HCl 50 mg PO BID #60 tablet 09/07/18 dilTIAZem CD [Cardizem CD] 180 mg PO QDAY #30 capsule 09/07/18 Amlodipine Besylate [Norvasc] 5 mg PO DAILY #30 tablet 07/01/19 Butalb/Acetamin/Caff 50-325-40 [Fioricet 50-325-40] 1 tab PO Q4H PRN #20 tablet 07/01/19 hydroCHLOROthiazide [Hctz] 12.5 mg PO QDAY #30 capsule 07/01/19 ED Review of Systems ROS: Stated complaint: MIGRAINE/CHEST COLD Other details as noted in HPI Constitutional: denies: chills, fever Respiratory: cough. denies: shortness of breath, wheezing Cardiovascular: denies: chest pain, palpitations Gastrointestinal: denies: abdominal pain, nausea, diarrhea Musculoskeletal: denies: back pain, joint swelling, arthralgia Skin: denies: rash, lesions Neurological: headache. denies: weakness, paresthesias Psychiatric: denies: anxiety, depression ED Past Medical Hx - Past Medical History Hx Hypertension: Yes Hx Congestive Heart Failure: No Hx Diabetes: No Hx Headaches / Migraines: Yes Hx Asthma: No Hx COPD: No - Surgical History Additional Surgical History: x2 - Social History Smoking Status: Never Smoker Substance Use Type: None - Medications Home Medications: Home Medications Medication Instructions Recorded Confirmed Last Taken Type Benzonatate [Tessalon Perles] 100 mg PO Q8HR PRN #30 capsule 04/12/16 09/05/18 Unknown Rx traMADoL [Ultram 50 MG tab] 50 mg PO Q6HR PRN #20 tablet 04/12/16 09/05/18 U nknown Rx Hydralazine HCl 50 mg PO BID #60 tablet 09/07/18 Unknown Rx dilTIAZem CD [Cardizem CD] 180 mg PO QDAY #30 capsule 09/07/18 Unknown Rx Amlodipine Besylate [Norvasc] 5 mg PO DAILY #30 tablet 07/01/19 Unknown Rx Butalb/Acetamin/Caff 50-325-40 1 tab PO Q4H PRN #20 tablet 07/01/19 Unknown Rx [Fioricet 50-325-40] hydroCHLOROthiazide [Hctz] 12.5 mg PO QDAY #30 capsule 07/01/19 Unknown Rx ED Physical Exam - General Limitations: No Limitations General appearance: alert, in no apparent distress, obese - Eye Eye exam: Present: normal appearance Pupils: Present: normal accommodation - ENT ENT exam: Present: normal orophraynx, mucous membranes moist, TM's normal bilaterally, normal external ear exam - Neck Neck exam: Present: normal inspection - Respiratory Respiratory exam: Present: normal lung sounds bilaterally. Absent: respiratory distress - Cardiovascular Cardiovascular Exam: Present: regular rate, normal rhythm. Absent: systolic murmur, diastolic murmur, rubs, gallop - GI/Abdominal GI/Abdominal exam: Present: soft, normal bowel sounds. Absent: distended, tenderness, guarding, rebound, rigid - Neurological Exam Neurological exam: Present: alert, oriented X3, normal gait - Psychiatric Psychiatric exam: Present: normal affect, normal mood - Skin Skin exam: Present: warm, dry, intact, normal color. Absent: rash ED Course Vital Signs 07/01/19 07/01/19 07/01/19 01:12 06:18 06:38 Temperature 98.0 F 97.8 F Pulse Rate 53 L 62 66 Respiratory 20 17 16 Rate Blood Pressure 192/107 188/100 Blood Pressure 206/113 [Right] O2 Sat by Pulse 98 99 100 Oximetry 07/01/19 07/01/19 06:45 07:06 Temperature Pulse Rate 57 L 72 Respiratory 15 17 Rate Blood Pressure 184/97 Blood Pressure 183/96 [Right] O2 Sat by Pulse 100 100 Oximetry ED Medical Decision Making - Medical Decision Making This is a 44 y.o. female that presents with headache and cough for 2 days. History of HTN and migraines. Patient off blood pressure medication for several months. Patient is stable. She reports global pain and photosensitivity. Denies blurry vision. She admits to taking an old medication. Reviewed med medication which was clonidine. Patient states she took medication 5 hours prior to arrival. Given Compazine, normal saline, steroids, Zofran, and labetalol. Start HCTZ, amlodipine, and Fioricet. Referral to PCP for continued care. Discussed plan with patient and agreed to plan. No further questions noted by the patient. Discharged home in stable condition with strict return instructions. Follow up with PCP in 1 week. Critical care attestation.: If time is entered above; I have spent that time in minutes in the direct care of this critically ill patient, excluding procedure time. ED Disposition Clinical Impression: Uncontrolled hypertension Migraine Qualifiers: Migraine type: without aura Status migrainosus presence: with status migrainosus Intractability: not intractable Qualified Code(s): G43.001 - Migraine without aura, not intractable, with status migrainosus Disposition: - TO HOME OR SELFCARE Is pt being admited?: No Condition: Stable Instructions: Hypertension (ED) Additional Instructions: Encourage stop smoking to reduce cardiovascular risk. Moderate caffeine consumption is acceptable. Begin and maintain aerobic exercise, with a goal of at least 30 minutes of moderate intensity, dynamic aerobic exercise (walking, jogging, cycling, or swimming) 5 days per week to total 150 minutes as tolerated or recommended by a physician. Take medication daily as prescribed. Follow up with Primary Care Provider in 1 week. Prescriptions: Butalb/Acetamin/Caff 50-325-40 [Fioricet 50-325-40] 1 tab PO Q4H PRN #20 tablet PRN Reason: Headache hydroCHLOROthiazide [Hctz] 12.5 mg PO QDAY #30 capsule Amlodipine Besylate [Norvasc] 5 mg PO DAILY #30 tablet Referrals: NNAMDI COYLE MD [Staff Physician] - 3-5 Days LATIA MAHAJAN MD [Staff Physician] - 3-[address] [facility] [Provider Group] - 3-5 Days JOHN LIMA MD [Staff Physician] - 3-5 Days Forms: Work/School Release Form(ED)
[2019-07-01] MEDS ORDERED: ONDANSETRON 4 MG/2 ML INJ IV ONE (06:02)
[2019-07-01] MEDS ORDERED: ONDANSETRON 4 MG/2 ML INJ ONE (06:04)
[2019-07-01 07:07] VITALS: BP 183/96
== END 2019-07-01 07:06 | disposition home or self-care (01) ==
LOC: ED 00:45
DX: G43.001 Migraine without aura, not intractable, with status migrainosus (principal); I10 Essential (primary) hypertension
CPT/HCPCS: 96374; 96375; 99282; J0780; J1100; J2405; J7030